=== PATIENT | male | born 1975 | race Hispanic/Latino ===

== ENCOUNTER 2021-08-08 02:02 | Emergency (ER) | payer SELFPAY ==
[2021-08-08 03:02] LABS: Bilirubin,Urine NEG (Negative); Blood,Urine NEG (Negative); Color,Urine Straw (Yellow); Mucus,Urine FEW /HPF; Protein,Urine <15 mg/dL mg/dL (Negative); Urobilinogen,Urine < 2.0 mg/dL (<2.0)
[2021-08-08 03:03] LABS: Amphetamine Screen,Urine PRESUMPTIVE NEGATIVE; Benzodiazepines Screen,Urine PRESUMPTIVE NEGATIVE; Cannabinoid Screen,Urine PRESUMPTIVE POSITIVE; Cocaine Screen,Urine PRESUMPTIVE NEGATIVE; Methadone Screen,Urine PRESUMPTIVE NEGATIVE; Opiate Screen,Urine PRESUMPTIVE NEGATIVE
[2021-08-08 03:12] LABS: WBC,Urine < 1.0 /HPF (0.0-6.0)
[2021-08-08] MEDS ORDERED: GABAPENTIN 400 MG CAP PO ONE (03:25)
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
[2021-08-08 05:35] LABS: Basophils % (Auto) 0.5 % (0.0-1.8); Eosinophils # (Auto) 0.2 K/mm3 (0.0-0.4); Eosinophils % (Auto) 2.4 % (0.0-4.3); Hematocrit 41.8 % (35.5-45.6); Hemoglobin 13.6 gm/dl (11.8-15.2); Lymphocytes # (Auto) 2.2 K/mm3 (1.2-5.4); Mean Corpuscular HGB Conc 33 % (32-34); Mean Corpuscular Volume 93 fl (84-94); Monocytes # (Auto) 0.9 K/mm3 (0.0-0.8); Monocytes % (Auto) 11.9 % (0.0-7.3); Platelet Count 243 K/mm3 (140-440); Red Blood Count 4.48 M/mm3 (3.65-5.03); Red Cell Distribution Width 14.1 % (13.2-15.2)
[2021-08-08 05:53] LABS: BUN/Creatinine Ratio 19; Blood Urea Nitrogen 15 mg/dL (9-20); Calcium 8.7 mg/dL (8.4-10.2); Hemolysis Index 6
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
[2021-08-08] MEDS: DIVALPROEX DR 250 MG TAB PO SCH ×2 (10:56→22:06)
[2021-08-08] MEDS ORDERED: ZIPRASIDONE MESYLATE 20 MG VIAL IM ONE ×3 (11:06→11:12)
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
[2021-08-09 05:47] VITALS: BP 112/60
--- NOTE | 2021-08-09 09:37 | Progress Note ---
Subjective - Reason for Consult Consult date: 08/09/21 Reason for consult: mental health evaluation - Chief Complaint Chief complaint: The patient was seen this morning. The patient states he is refusing medications because he wants Gabapentin. The patient denies any current suicidal ideation and denies hallucinations. REVIEW OF SYSTEMS Constitutional: Negative for weight loss ENT: Negative for stridor Respiratory: Negative for cough or hemoptysis All other systems reviewed and are negative MENTAL STATUS EXAMINATION General Appearance and Behavior: Age appropriate, dressed appropriately, calm an d uncooperative Cooperation: cooperative Psychomotor Behavior: psychomotor normal Mood:"ok" Affect and affective range: congruent with stated mood Thought Process: goal oriented Thought Content: Not suicidal Speech: loud Suicidal Ideation: Denies Homicidal Ideation: Denies Hallucinations: Denies Delusions: None elicited Impulse Control: Unimpaired Insight and Judgment: limited insight and poor judgment, Memory: Normal Attention: divided Orientation: Alert, oriented Assessment and Plan (1) Schizophrenia (2) Treatment plan Discontinue 1013 Gabapentin 300mg po BID Continue previous prescribed meds Risks, benefits and alternatives of medications discussed with the patient, questions answered and consent obtained from patient. PSYCHOTHERAPY: Supportive psychotherapy provided MEDICAL: Per primary team DELIRIUM PRECAUTIONS: Please re-orient patient frequently, keep lights on during the day, and minimize benzodiazepines and opiates as these medications could worsen patient's confusion. SCHOOL TRAFFIC GUARD: Per medical team DISPOSITION: Do not recommend acute inpatient psychiatric hospitalization. The barn manager will provide patient with out patient resources. Will sign off. Thank you for the consult. Please contact with any questions and/or concerns. Case staffed with Dr. Briseno Medications and Allergies Mental Status Exam - Vital signs Last Vital Signs Temp 97.6 F 08/09/21 01:00 Pulse 88 08/09/21 01:00 Resp 20 08/09/21 01:00 BP 112/60 08/09/21 01:00 Pulse Ox 98 08/09/21 01:00
[2021-08-09] MEDS: DIVALPROEX DR 250 MG TAB PO SCH (09:58)
--- NOTE | 2021-08-09 12:14 | Emergency Department Report ---
Blank Doc - Documentation Documentation: 46-year-old male with schizophrenia presents with flight of ideas with halluci nations. Today 1013 was discontinued by mental health nurse practitioner. Meds and outpatient follow-up provided
== END 2021-08-09 12:42 | disposition home or self-care (01) ==
LOC: ED 02:02
DX: F20.9 Schizophrenia, unspecified (principal); Z20.822 Contact with and (suspected) exposure to COVID-19
CPT/HCPCS: 36415; 80048; 80307; 81001; 85025; 96372; 99284; J3486; U0003; 80320; G0480